=== PATIENT | male | born 1950 ===

== ENCOUNTER 2023-07-19 11:50 | Outpatient (CLI) | payer MEDICARE, SELFPAY ==
--- NOTE | ~2023-07-19 | XR_ITS ---
EXAMINATION: XR hand LT min 3V DATE: 07/19/2023 12:39 INDICATION: Palmar fascial fibromatosis with Dupuytren's contracture TECHNIQUE: Posteroanterior, oblique and lateral views of the left hand were obtained. COMPARISON: None. FINDINGS: There is persistent flexion at the fifth proximal interphalangeal joint consistent with provided hist ory of Dupuytren's contracture. Alignment is otherwise normal. No fracture. Mild osteoarthritis at th e first carpal metacarpal joint and at multiple interphalangeal joints soft tissues are unremarkable. IMPRESSION: 1. Persistent flexion at the left fifth proximal interphalangeal joint consistent with provided histo ry of Dupuytren's contracture. 2. 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 Reviewed, dictated and finalized at location A. IMPRESSION: 1. Persistent flexion at the left fifth proximal interphalangeal joint consiste nt with provided history of Dupuytren's contracture. 2. 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
== END 2023-07-19 11:51 | disposition home or self-care (01) ==
LOC: ANHIMG 11:57
PROVIDERS: PCP Physician Assistant Medical; Visit Provider Physician Assistant Surgical
DX: M24.542 Contracture, left hand (principal); M18.12 Unilateral primary osteoarthritis of first carpometacarpal joint, left hand; Z87.39 Personal history of other diseases of the musculoskeletal system and connective tissue
CPT/HCPCS: 73130

== ENCOUNTER 2023-08-15 08:27 | Outpatient (CLI) | payer MEDICARE, SELFPAY ==
--- NOTE | 2023-08-15 08:40 | EST_ITS ---
Patient Info Name: Antony Nagel Age: 73 years : 1950 Gender: Male Ht: 76 in Wt: 230 lbs BSA: 2.38 m2 HR: 69 bpm BP: 126 / 85 mmHg Heart Rhythm: Sinus Rhythm Exam Date: 08/15/2023 10:42 AM Exam Location: Echo Lab Patient Status: Outpatient Admit Date: 08/15/2023 Staff Ordering Physician: Olegario Calhoun DO Attending Provider: Olegario Calhoun DO Exercise Technologist: Dotty Fox CT Exercise Physician: Olegario Calhoun DO Exam Type: CA stress test treadmill Study Info Indications R06.09 - Other forms of dyspnea A treadmill exercise stress test was performed. Summary 1. 1. Negative Carson exercise stress test for ischemic ST changes by ECG criteria. 2. 2. Good functional capacity, achieving 10 METs of workload. 3. 3. Appropropriate HR response to exercise. 4. 4. Appropriate HR recovery at 1 minute post exercise. 5. 5. No imaging with stress testing. 6. 6. Patient informed of the above results. Protocol: Carson Stress ECG Details Stage: REST Duration (min): 4 min : 25 sec Speed (mph): 0.0 Grade (%): 0 HR (bpm): 75 SBP (mmHg): 126 DBP (mmHg): 85 METS: --- Stage: STAGE 1 Duration (min): 1 min : 0 sec Speed (mph): 1.7 Grade (%): 10 HR (bpm): 94 SBP (mmHg): 126 DBP (mmHg): 85 METS: --- Stage: STAGE 1 Duration (min): 2 min : 0 sec Speed (mph): 1.7 Grade (%): 10 HR (bpm): 103 SBP (mmHg): 126 DBP (mmHg): 85 METS: --- Stage: STAGE 1 Duration (min): 3 min : 0 sec Speed (mph): 1.7 Grade (%): 10 HR (bpm): 108 SBP (mmHg): 157 DBP (mmHg): 76 METS: --- Stage: STAGE 2 Duration (min): 1 min : 0 sec Speed (mph): 2.5 Grade (%): 12 HR (bpm): 112 SBP (mmHg): 157 DBP (mmHg): 76 METS: --- Stage: STAGE 2 Duration (min): 2 min : 0 sec Speed (mph): 2.5 Grade (%): 12 HR (bpm): 116 SBP (mmHg): 183 DBP (mmHg): 75 METS: --- Stage: STAGE 2 Duration (min): 3 min : 0 sec Speed (mph): 2.5 Grade (%): 12 HR (bpm): 111 SBP (mmHg): 183 DBP (mmHg): 75 METS: --- Stage: STAGE 3 Duration (min): 1 min : 0 sec Speed (mph): 3.4 Grade (%): 14 HR (bpm): 124 SBP (mmHg): 183 DBP (mmHg): 75 METS: --- Stage: STAGE 3 Duration (min): 2 min : 0 sec Speed (mph): 3.4 Grade (%): 14 HR (bpm): 129 SBP (mmHg): 183 DBP (mmHg): 75 METS: --- Stage: STAGE 3 Duration (min): 2 min : 30 sec Speed (mph): 3.4 Grade (%): 14 HR (bpm): 133 SBP (mmHg): 183 DBP (mmHg): 75 METS: --- Stage: RECOVERY Duration (min): 0 min : 29 sec Speed (mph): 0.0 Grade (%): 0 HR (bpm): 127 SBP (mmHg): 183 DBP (mmHg): 75 METS: --- Stage: RECOVERY Duration (min): 1 min : 29 sec Speed (mph): 0.0 Grade (%): 0 HR (bpm): 92 SBP (mmHg): 183 DBP (mmHg): 75 METS: --- Stage: RECOVERY Duration (min): 2 min : 21 sec Speed (mph): 0.0 Grade (%): 0 HR (bpm): 81 SBP (mmHg): 171 DBP (mmHg): 77
--- NOTE | 2023-08-15 08:40 | ECHO_ITS ---
Patient Info Name: Antony Nagel Age: 73 years : 1950 Gender: Male Ht: 76 in Wt: 230 lbs BSA: 2.38 m2 HR: 66 bpm BP: 140 / 80 mmHg Technical Quality: Good Exam Date: 08/15/2023 9:20 AM Exam Location: Echo Lab Patient Status: Outpatient Admit Date: 08/15/2023 Staff Ordering Physician: Olegario Calhoun DO Coding Tech: Kassidy Massey RDCS Attending Provider: Olegario Calhoun DO Referring Physician: Lj SEYMOUR; Exam Type: CA echo doppler color flow Study Info Indications R06.09 - Other forms of dyspnea Complete two-dimensional, color flow and Doppler transthoracic echocardiogram is performed. Summary 1. Complete two-dimensional, color flow and Doppler transthoracic echocardiogram is performed. 2. Left ventricular chamber dimension is normal. 3. Left ventricular systolic function is mildly reduced, estimated at 45-50%. 4. The left ventricular diastolic function is grade I diastolic dysfunction. 5. E/e' 10 is mildly elevated. 6. Left atrial chamber dimension is mildly enlarged. 7. There is mild aortic valve regurgitation. 8. There is mild mitral valve regurgitation. 9. There is trace tricuspid valve regurgitation. 10. No pulmonary hypertension, estimated pulmonary arterial systolic pressure is 29 mmHg. 11. There is trace pulmonic regurgitation. Left Ventricle E/e' 10 is mildly elevated. Left ventricular chamber dimension is normal. Left ventricular systolic function is mildly reduced, estimated at 45-50%. The left ventricular diastolic function is grade I diastolic dysfunction. Right Ventricle Right ventricular systolic function is normal and with normal TAPSE 2.6 cm. Right ventricular chamber dimension is normal. Left Atria Left atrial chamber dimension is mildly enlarged. Right Atria Right atrial chamber dimension is normal. Aortic Valve The aortic valve is trileaflet. There is no aortic valve stenosis. There is mild aortic valve regurgitation. Pulmonic Valve There is trace pulmonic regurgitation. Mitral Valve There is no mitral valve stenosis. There is mild mitral valve regurgitation. Tricuspid Valve There is trace tricuspid valve regurgitation. No pulmonary hypertension, estimated pulmonary arterial systolic pressure is 29 mmHg. Pericardium/Pleural There is no pericardial effusion. Inferior Vena Cava Normal inferior vena cava with >50% collapse upon inspiration consistent with normal right atrial pressure, 5 mmHg. Aorta The aortic root size at the sinus of Valsalva is normal. Left Ventricular Outflow Tract Name Value Normal LVOT 2D LVOT Diameter 2.0 cm LVOT Doppler LVOT Peak Gradient 3 mmHg LVOT Mean Gradient 2 mmHg LVOT VTI 16 cm LVOT VTI/AV VTI Ratio 0.8 LVOT Stroke Volume 54 ml LVOT CO 3.7 l/min LVOT CI 1.5 l/min/m2 Pulmonic Valve Name Value Normal RVOT Doppler --------
== END 2023-08-15 08:28 | disposition home or self-care (01) ==
LOC: ANHCARD 08:33
PROVIDERS: PCP Physician Assistant Medical; Visit Provider Internal Medicine Cardiovascular Disease
DX: R06.09 Other forms of dyspnea (principal); I08.0 Rheumatic disorders of both mitral and aortic valves
CPT/HCPCS: 93017; 93306

== ENCOUNTER 2023-10-11 09:37 | Outpatient (CLI) | payer MEDICARE, SELFPAY ==
--- NOTE | 2023-10-23 17:55 | WPDSLEEPSTUD ---
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 He had a sleep study ordered for heart palpitations.? He rarely awakens from sleep short of breath.? He rarely awakens at night with heartburn, belching or cough.? He frequently snores and is occasionally loud enough that others complain.? He denies having trouble sleeping when he has a cold.? He denies waking up gasping for air throughout the night.? He denies having breathing problems at night observed by himself or others.? He denies sweating excessively at night.? He rarely has heart palpitations or irregular heartbeats during the night.? He occasionally falls asleep during the day but never while driving.? He denies sleep paralysis and cataplexy.? He denies having trouble at school or work due to sleepiness.? He denies feeling afraid of falling asleep.? He rarely has nightmares.? He frequently remembers his dreams.? He denies having thoughts racing through his mind.? He rarely feels sad or depressed.? He denies having anxiety.? He constantly has muscular tension.? He denies noticing parts of his body jerk.? He denies kicking during the night.? He denies having crawling and aching feelings in his legs but frequently has leg pain during the night.? He denies grinding his teeth during sleep and denies awakening with morning jaw pain.? He is rarely bothered by pain during the day but never awakened by pain during the night.? He frequently wakes up feeling stiff in the morning.? He rarely wakes up with sore or achy muscles.? He occasionally wakes up with pain in the neck, spine and other joints.? He goes to bed at sunset on both weekdays and weekends.? It takes him to 10 to 20 minutes to fall asleep.? He wakes up 2-3 times throughout the night to urinate and due to leg cramps.? He is able to fall back asleep within 5 minutes.? He wakes up at 4:45 a.m. on both weekdays and weekends.? He typically gets 9 hours of sleep per night.? He stays in bed for 5-10 minutes after waking up in the morning.? He currently lives with his .? He denies consuming any caffeinated beverages within 2 hours of bedtime.? He denies engaging in physical exercise before bedtime.? He will often read before falling asleep.? He denies watching television before falling asleep.? He will take naps in the afternoon after lunch.? Those naps are refreshing. He consumes 3-4 caffeinated beverages per day.? He will consume occasional alcoholic beverage per week.? He denies tobacco and recreational drug use. [facility] Past Medical History Medical History Hyperglycemia Surgical History Surgical History History of removal of cyst 2016 Family History Family History Mother Family history of cardiac disorder, Onset Age: 88 Heart disease Grandparent Family history of cardiac disorder Heart disease Father Cerebrovascular accident Other Family history of cardiovascular disease Family history of malignant neoplasm Social History Social History Smoking status: Never smoker Alcohol intake: current Alcohol use details: 3-4 beers a week Substance use: never Substance use type: does not use Occupation/Education: occupation Agree to blood products: Yes Medications Home Medications Medication Instructions Recorded Confirmed Type rosuvastatin 10 mg tablet (Crestor) 10 mg PO .bedtime #90 tabs 07/07/23 08/31/23 Rx metoprolol succinate 25 mg 25 mg PO DA
[2023-10-24 13:35] VITALS: BMI 26.6
== END 2023-10-12 06:50 | disposition home or self-care (01) ==
LOC: ANHCSM 09:37
PROVIDERS: PCP Physician Assistant Medical; Visit Provider Internal Medicine Cardiovascular Disease
DX: G47.33 Obstructive sleep apnea (adult) (pediatric) (principal); G47.10 Hypersomnia, unspecified; I25.9 Chronic ischemic heart disease, unspecified
CPT/HCPCS: 95811

== ENCOUNTER 2024-10-26 14:12 | Outpatient (CLI) | payer MEDICARE, SELFPAY ==
--- OUTSIDE RECORDS SUMMARY | 2024-10-26 14:19 | XMS_ITS | Clinical Summary ---
Author Organization [facility] Address [address] [place] [id number] Care Team Providers Care Security Systems Integrator Name Role Phone Unavailable Primary Care Provider Unavailabl e Social History Tobacco Use Types Packs/Day Years Used Date Smoking Tobacco: Never Assessed Sex and Gender Information Value Date Recorded Sex Assigned at Not on file Legal Sex Male 6:09 PM CDT Gender Identity Not on file Sexual Orientation Not on file Plan of Treatment Health Maintenance Due Date Last Done Comments Colorectal Cancer Screening Colonoscopy (10 Years) 1950 Hepatitis C 1970 DTaP, Tdap and Td Vaccines ( 1 - Tdap) 05/08/1971 Pneumococcal Vaccine: 50+ Ye ars (1 of 1 - PCV) 2002 Zoster Vaccines (1 of 2) 2002 COVID-19 Vaccine ( - 2023-2 5 season) 2023 RSV Immunization or 60+ Years (1 - 1-dose 75+ series) 05/08/2027 Meningococcal B Vaccine Aged Out No l onger eligible based on patient's age to complete this topic Meningococcal Vaccine Aged Out No evonne ashwin eligible based on patient's age to complete this topic RSV Immunizations Under 20 Months Aged Out No longer eligible based on patient's age to complete this topic
--- NOTE | 2024-10-26 14:38 | ECHO_ITS ---
Patient Info Name: Antony Nagel Age: 74 years : 1950 Gender: Male Ht: 77 in Wt: 220 lbs BSA: 2.34 m2 HR: 62 bpm BP: 125 / 83 mmHg Heart Rhythm: Sinus Rhythm Technical Quality: Good Exam Date: 10/26/2024 2:48 PM Patient Status: O Admit Date: 10/26/2024 Exam Type: CA echo doppler color flow Complete two-dimensional, color flow and Doppler transthoracic echocardiogram is performed. Spinner Fixer: Yaniv Valenzuela III Attending Provider: Olegario Calhoun DO Summary 1. Complete two-dimensional, color flow and Doppler transthoracic echocardiogram is performed. 2. Left ventricular chamber dimension is moderately enlarged. 3. Left ventricular systolic function is mildly globally reduced, estimated at 45-50. 4. The left ventricular diastolic function is grade I diastolic dysfunction. 5. E/e' 8 is minimally elevated. 6. Left atrial chamber dimension is mildly enlarged. 7. There is mild to moderate aortic valve regurgitation. 8. There is mild mitral valve regurgitation. 9. There is mild tricuspid valve regurgitation. 10. No pulmonary hypertension, estimated pulmonary arterial systolic pressure is 33 mmHg. Left Ventricle E/e' 8 is minimally elevated. Left ventricular chamber dimension is moderately enlarged. Left ventricular systolic function is mildly globally reduced, estimated at 45-50. The left ventricular diastolic function is grade I diastolic dysfunction. Right Ventricle Right ventricular chamber dimension is normal. Right ventricular systolic function is normal and with normal TAPSE 2.2 cm. Left Atria Left atrial chamber dimension is mildly enlarged. Right Atria Right atrial chamber dimension is normal. Aortic Valve The aortic valve is trileaflet. There is no aortic valve stenosis. There is mild to moderate aortic valve regurgitation. Pulmonic Valve There is no pulmonic regurgitation. Mitral Valve There is no mitral valve stenosis. There is mild mitral valve regurgitation. Tricuspid Valve There is mild tricuspid valve regurgitation. No pulmonary hypertension, estimated pulmonary arterial systolic pressure is 33 mmHg. Pericardium/Pleural There is no pericardial effusion. Inferior Vena Cava Normal inferior vena cava with >50% collapse upon inspiration consistent with normal right atrial pressure, 5 mmHg. Aorta The aortic root size at the sinus of Valsalva is normal. Left Ventricular Outflow Tract Name Value Normal LVOT 2D LVOT Diameter 2.6 cm LVOT Doppler LVOT Peak Velocity 75 cm/s LVOT Peak Gradient 2 mmHg LVOT Mean Gradient 1 mmHg LVOT VTI 18 cm LVOT VTI/AV VTI Ratio 0.8 LVOT Stroke Volume 94 ml LVOT CO 16.6 l/min LVOT CI 7.1 l/min/m2 Pulmonic Valve Name Value Normal PV Doppler PV Peak Velocity 117 cm/s PV Peak Gradient 6 mmHg PV Mean Gradient 3 mmHg Mitral Valve Name Value Normal MV Doppler MV Peak Gradient 2 mmHg MV Mean Gradient 1 mmHg MV Area (Cont Eq VTI) 4.0 cm2 MV Diastolic Function MV E Peak Velocity 60 cm/s MV A Peak Velocity 70 cm/s MV E/A 0.9 MV Decel Time (PW) 213 ms MV Annular TDI MV E/e' (Septal) 8.6 MV E/e' (Lateral) 9.1 MV E/e' (Average) 8.8 Tricuspid Valve Name Value Normal TV Regurgitation Doppler TR Peak Velocity 266 cm/s TR Peak Gradient 28 mmHg Estimated PAP/RSVP RA Pressure 5 mmHg <=5 PA Systolic Pressure 33 mmHg <36 RV Systolic Pressure 33 mmHg <36 TV Annular TDI TV Lateral Brittany s' Velocity 11.2 cm/s >=9.5 Aortic Valve Name Value Normal AV Doppler AV Peak Velocity 107 cm/s AV Peak Gradient 5 mmHg AV Mean Gradient 3 mmHg AV VTI 24 cm AV Area (Cont Eq VTI) 4.0 cm2 >=3.0 AV Area (Cont Eq Gallo) 3.7 cm2 AV DI (Gallo) 0.70 AV Regurgitation 2D LVOT Area 5.2 cm2 Ventricles Name Value Normal LV Dimensions 2D/MM IVS Diastolic Thickness (2D) 1.0 cm 0.6-1.0 LVID Diastole (2D) 6.1 cm 4.2-5.8 LVIW Diastolic Thickness (2D) 1.0 cm 0.6-1.0 LVID Systole (2D) 5.0 cm 2.5-4.0 LVOT Diameter 2.6 cm LV Mass (2D Cubed) 240.46 g 88.00-224.00 LV Mass Index (2D Cubed) 103 g/m2 49-115 Relative Wall Thickness (2D) 0.31 <=0.42 LV Fractional Shortening/Ejection Fraction 2D/MM LV Fractional Shortening (2D) 18 % 25-43 LV EF (2D Teichholz) 37 % LV Diastolic Volume (4C MOD) 169 ml LV EF (4C MOD) 51 % LV Diastolic Volume (2C MOD) 130 ml LV EF (2C MOD) 34 % LV Diastolic Volume (BP MOD) 163 ml 62-150 LV Diastolic Volume Index (BP MOD) 70 ml/m2 34-74 LV Systolic Volume (BP MOD) 84 ml 21-61 LV Systolic Volume Index (BP MOD) 36 ml/m2 11-31 LV EF (BP MOD) 48 % 52-72 LV Diastolic Length (4C) 10.4 cm LV Systolic Length (4C) 9.3 cm LV Stroke Volume (4C MOD) 86 ml Atria Name Value Normal LA Dimensions LA Volume (4C A-L) 74 ml LA Volume (BP A-L) 90 ml RA Dimensions RA Systolic Major [place] Length (4C) 6.3 cm 2.1-2.7 RA Area (4C) 21.0 cm2 <=18.0 Report Signatures
== END 2024-10-26 14:13 | disposition home or self-care (01) ==
PROVIDERS: PCP Physician Assistant Medical; Visit Provider Internal Medicine Cardiovascular Disease
DX: R94.31 Abnormal electrocardiogram [ECG] [EKG] (principal); I51.9 Heart disease, unspecified
CPT/HCPCS: 93306